=== PATIENT | female | born 1985 | race Caucasian/White ===

== ENCOUNTER 2018-03-15 11:37 | Emergency (ER) | payer BC ==
[~2018-03-15] VITALS: Ht 160 cm; Wt 62.6 kg
[2018-03-15 12:03] VITALS: BP 114/56
[2018-03-15] MEDS ORDERED: CEPH-264 PO (12:48)
[2018-03-15] MEDS ORDERED: MUPI22OI2 TP (12:48)
--- NOTE | 2018-03-15 12:49 | PHYS DOC ---
Past Medical History Past Medical History: Other Additional Past Medical Histor: Cystic Acne Past Surgical History: No Surgical History Alcohol Use: Rarely Drug Use: None Adult General Chief Complaint Chief Complaint: ABSCESS HPI HPI Patient is a 32 year old [f__sex] who presents with [] Review of Systems Review of Systems Constitutional: Denies fever or chills [] Eyes: Denies change in visual acuity, redness, or eye pain [] HENT: Denies nasal congestion or sore throat [] Respiratory: Denies cough or shortness of breath [] Cardiovascular: No additional information not addressed in HPI [] GI: Denies abdominal pain, nausea, vomiting, bloody stools or diarrhea [] : Denies dysuria or hematuria [] Musculoskeletal: Denies back pain or joint pain [] Integument: Denies rash or skin lesions [] Neurologic: Denies headache, focal weakness or sensory changes [] Endocrine: Denies polyuria or polydipsia [] All other systems were reviewed and found to be within normal limits, except as documented in this note. Allergies Allergies Allergies Coded Allergies Type Severity Reaction Last Updated Verified No Known Drug Allergies 03/15/18 No Physical Exam Physical Exam Constitutional: Well developed, well nourished, no acute distress, non-toxic appearance. [] HENT: Normocephalic, atraumatic, bilateral external ears normal, oropharynx moist, no oral exudates, nose normal. [] Eyes: PERRLA, EOMI, conjunctiva normal, no discharge. [] Neck: Normal range of motion, no tenderness, supple, no stridor. [] Cardiovascular:Heart rate regular rhythm, no murmur [] Lungs & Thorax: Bilateral breath sounds clear to auscultation [] Abdomen: Bowel sounds normal, soft, no tenderness, no masses, no pulsatile masses. [] Skin: Warm, dry, no erythema, no rash. [] Back: No tenderness, no CVA tenderness. [] Extremities: No tenderness, no cyanosis, no clubbing, ROM intact, no edema. [] Neurologic: Alert and oriented X 3, normal motor function, normal sensory function, no focal deficits noted. [] Psychologic: Affect normal, judgement normal, mood normal. [] Current Patient Data Vital Signs Vital Signs Date Time Temp Pulse Resp B/P (MAP) Pulse Ox O2 Delivery O2 Flow Rate FiO2 03/15/18 12:03 98.2 71 14 114/56 (75) 100 Room Air 98.2 EKG EKG [] Radiology/Procedures Radiology/Procedures [] Course & Med Decision Making Course & Med Decision Making Pertinent Labs and Imaging studies reviewed. (See chart for details) [] Dragon Disclaimer Dragon Disclaimer This electronic medical record was generated, in whole or in part, using a voice recognition dictation system. Departure Departure Impression: Primary Impression: Cellulitis Referrals: NO PCP (PCP) Patient Instructions: Cellulitis Additional Instructions: Use medication as directed. Follow-up with your primary care provider if not improving in 4 days or return to the emergency department if worsening. Scripts Mupirocin (MUPIROCIN OINTMENT) 22 Gm Oint...g. 1 CRISTOFER TP TID for WOUND CARE, #1 TUBE Prov: EMMY ROBERTS APRN 03/15/18 Cephalexin (KEFLEX) 500 Mg Capsule 1 CAP PO TID for cellulitis, #30 CAP Prov: EMMY ROBERTS APRN 03/15/18 EMMY ROBERTS APRN Mar 15, 2018 12:49
== END 2018-03-15 13:01 | disposition home or self-care (01) ==
LOC: ER 11:37
DX: O99.712 Diseases of the skin and subcutaneous tissue complicating pregnancy, second trimester (principal); L03.211 Cellulitis of face; Z3A.14 14 weeks gestation of pregnancy
CPT/HCPCS: 99283

== ENCOUNTER 2018-08-30 22:16 | Inpatient (IN) | payer BC, OTHER ==
[~2018-08-30] VITALS: Ht 160 cm; Wt 64.4 kg
[~2018-08-30 22:16] MED LIST: CEPH-264 PO; MUPI22OI2 TP
[2018-08-30] MEDS ORDERED: IV RINGERS,LACTATED 1000ML 1,000 ML IV SCH (22:22)
[2018-08-30] MEDS ORDERED: ACETAMINOPHEN 500 MG TABLET PO PRN (22:30)
[2018-08-30] MEDS ORDERED: ONDANSETRON PF 4 MG/2 ML VIAL. IV PRN (22:30)
[2018-08-30 23:21] LABS: BILIRUBIN,URINE NEGATIVE (NEG); CLARITY,URINE CLEAR; COLOR,URINE YELLOW; NITRITE,URINE NEGATIVE (NEG); PH,URINE 6.5; PROTEIN,URINE NEGATIVE (NEG-TRACE)
[2018-08-30 23:28] LABS: AMPHETAMINE/METHAMPHETAMINE NEG (NEG); BARBITURATES NEG (NEG); BENZODIAZEPINES NEG (NEG); CANNABINOIDS NEG (NEG); COCAINE NEG (NEG); METHADONE NEG (NEG); OPIATES NEG (NEG); PHENCYCLIDINE NEG (NEG)
[2018-08-30 23:31] LABS: BACTERIA,URINE 0 /HPF (0-FEW); SQUAMOUS EPITHELIAL CELL,UR FEW /LPF
[2018-08-31] VITALS (7 sets, daily range): BP systolic 109–138; BP diastolic 61–86
[2018-08-31] MEDS: IV RINGERS,LACTATED 1000ML 1,000 ML IV SCH ×3 (00:11→16:11)
[2018-08-31] MEDS ORDERED: LIDOCAINE 1% PF 30 ML VIAL. INJ PRN (00:15)
[2018-08-31] MEDS ORDERED: 0.9 % SODIUM CHLORIDE 10 ML DISP.SYRIN. IV PRN ×2 (00:15→01:45)
[2018-08-31] MEDS ORDERED: fentaNYL PF VIAL 100 MCG/2 ML VIAL IV PRN ×2 (00:15)
[2018-08-31] MEDS ORDERED: OXYTOCIN 30 UNIT/500 ML PREMIX 500 ML IV PRN ×3 (00:15→01:45)
[2018-08-31] MEDS ORDERED: TERBUTALINE 1 MG/ML VIAL. SQ PRN (00:15)
[2018-08-31] MEDS ORDERED: IBUPROFEN 400 MG TABLET. PO PRN (00:15)
[2018-08-31 00:42] LABS: BASO # 0.1 x10^3/uL (0.0-0.2); BASO % 1 % (0-3); EOS # 0.1 x10^3/uL (0.0-0.7); EOS % 1 % (0-3); HEMATOCRIT 39.3 % (36.0-47.0); HEMOGLOBIN 12.5 g/dL (12.0-15.5); LYMPH # 2.1 x10^3/uL (1.0-4.8); LYMPH % 15 % (24-48); MEAN CORPUSCULAR HEMOGLOBIN 25 pg (25-35); MEAN CORPUSCULAR HGB CONC 32 g/dL (31-37); MEAN CORPUSCULAR VOLUME 80 fL (79-100); MONO # 1.2 x10^3/uL (0.0-1.1); MONO % 9 % (0-9); NEUT # 9.9 x10^3uL (1.8-7.7); NEUT % 74 % (31-73); PLATELET COUNT 312 x10^3/uL (140-400); RED BLOOD COUNT 4.92 x10^6/uL (3.50-5.40); RED CELL DISTRIBUTION WIDTH 15.3 % (11.5-14.5); WHITE BLOOD COUNT 13.4 x10^3/uL (4.0-11.0)
--- NOTE | 2018-08-31 01:08 | PDOC1 ---
OB - History Hx of Present Care: Good Care Ultrasounds: Normal mid trimester US Obstetrical Complications: None Medical Complications: None Past Family/Social History * Past Medical, Surgical, Family and Obstetric Histories reviewed from chart. Rubella: Immune RPR/VDRL: Negative GBS Status: Negative HBsAG: Negative OB - Chief Complaint & HPI Date of Admission: Date of Admission: August 30, 2018 at 22:16 Chief Complaint/History : 10 Para: 8 EGA: 38 Reason for admission: active labor Admission Nurse Assessment Rev: Yes OB - Admission Exam Physical Exam Vitals: VS - Last 72 Hours, by Label Date Time Temp Pulse Resp B/P (MAP) Pulse Ox O2 Delivery O2 Flow Rate FiO2 08/31/18 00:19 98.3 69 18 138/76 (96) Room Air 98.3 HEENT: Normal Heart: Regular Rate Lungs: Clear Abdomen: Gravid, Non tender, Soft Extremities: Edema Reflexes: Normal Cervical Dilatation: 7cm Effacement: 75% Station: -2 Membranes: Intact Heart Rate: Normal Accelerations: Accelerations Present Contractions on Admission: < 5 Minutes Apart Intensity: Mild Text A: 38 wks IUP Grand Multip Active labor P: Admit for labor management. SABRINA BRO Jr, MD August 31, 2018 01:08
--- NOTE | 2018-08-31 01:42 | PDOC ---
VAGINAL DELIVERY DATE DATE: 08/31/18 TIME: 01:41 : Other (10) Para: Other (9) EGA: 38 VAGINAL DELIVERY: VTX VACCUM ASSISTED: No PLACENTA: Spontaneous 8/9 SEX: Male WEIGHT Weight [3345 gm ] Nuchal Cord: No Amniotic Fluid: Clear PAIN: Natural EPISIOTOMY: No EXTENSION: No EBL 300 ml COMPLICATIONS none CONDITION pt. stable Signs of Intrauterine Infectio: None Shoulder Dystocia: No SABRINA BRO Jr, MD August 31, 2018 01:42
[2018-08-31] MEDS ORDERED: SIMETHICONE 80 MG TAB.CHEW PO PRN (01:45)
[2018-08-31] MEDS ORDERED: PHENYLEPH/MINERAL OIL/PETROLAT RECTAL OINTMENT 28GM TUBE. RC PRN (01:45)
[2018-08-31] MEDS ORDERED: diphenhydrAMINE HCL 25 MG CAPSULE PO PRN (01:45)
[2018-08-31] MEDS ORDERED: BENZOCAINE 20% TOPICAL AEROSOL SPRAY 57GM CAN. TP PRN (01:45)
[2018-08-31] MEDS ORDERED: MAGNESIUM HYDROXIDE 2,400 MG/30 ML ORAL.SUSP. PO PRN (01:45)
[2018-08-31] MEDS ORDERED: oxyCODONE/APAP 5/325 1 TAB TABLET PO PRN (01:45)
[2018-08-31] MEDS ORDERED: ACETAMINOPHEN 325 MG TABLET. PO PRN (01:45)
[2018-08-31] MEDS ORDERED: ZOLPIDEM 5 MG TABLET. PO PRN (01:45)
[2018-08-31] MEDS ORDERED: MMR per PROTOCOL. MC PRN (01:45)
[2018-08-31] MEDS ORDERED: HYDROCORTISONE 1% TOPICAL OINTMENT 30GM TUBE. TP PRN (01:45)
[2018-08-31] MEDS ORDERED: MAG HYDROX/ALUMINUM HYD/SIMETH 30 ML ORAL.SUSP PO PRN (01:45)
[2018-08-31] MEDS: IBUPROFEN 400 MG TABLET. PO PRN ×3 (03:53→22:48)
[2018-08-31] MEDS: DOCUSATE SODIUM 100 MG CAPSULE. PO PRN (12:57)
[2018-09-01 05:14] LABS: BASO # 0.1 x10^3/uL (0.0-0.2); BASO % 1 % (0-3); EOS # 0.2 x10^3/uL (0.0-0.7); EOS % 2 % (0-3); HEMATOCRIT 38.1 % (36.0-47.0); HEMOGLOBIN 11.9 g/dL (12.0-15.5); LYMPH # 3.1 x10^3/uL (1.0-4.8); LYMPH % 27 % (24-48); MEAN CORPUSCULAR HEMOGLOBIN 25 pg (25-35); MEAN CORPUSCULAR HGB CONC 31 g/dL (31-37); MEAN CORPUSCULAR VOLUME 81 fL (79-100); MONO # 0.9 x10^3/uL (0.0-1.1); MONO % 8 % (0-9); NEUT # 7.3 x10^3uL (1.8-7.7); NEUT % 63 % (31-73); PLATELET COUNT 299 x10^3/uL (140-400); RED BLOOD COUNT 4.72 x10^6/uL (3.50-5.40); RED CELL DISTRIBUTION WIDTH 15.2 % (11.5-14.5); WHITE BLOOD COUNT 11.6 x10^3/uL (4.0-11.0)
[2018-09-01 05:15] VITALS: BP 131/78
[2018-09-01] MEDS ORDERED: FERROUS SULFATE 325 MG TABLET. PO SCH (08:00)
[2018-09-01] MEDS: DOCUSATE SODIUM 100 MG CAPSULE. PO PRN ×2 (09:10→20:22)
[2018-09-01] MEDS: IBUPROFEN 400 MG TABLET. PO PRN ×2 (09:10→20:22)
[2018-09-01 11:10] VITALS: BP 122/82
--- NOTE | 2018-09-01 14:44 | NUR ---
SS following up on [facility] hotline report, #[id number], made on 08/31/2018 for past history of substance use, incarceration, and loss of custody of other children. SS e-mailed [facility] supervisors for update on hotline report. SS awaiting response from [facility] at this time. Mother's UDS for this admission is negative. Infant RN reported that Meconium is negative. SS will await response from [facility] and will proceed accordingly.
--- NOTE | 2018-09-01 14:48 | PDOC ---
Provider Note Provider Note Doing well VSS Uterus NTTP plan PPBTL in AM JACQUI BURRELL MD September 01, 2018 14:48
[2018-09-01 15:41] VITALS: BP 128/90
--- NOTE | 2018-09-01 15:43 | NUR ---
pt signed for tubal ligation in am, questions answered on procedure in am
[2018-09-01 20:20] VITALS: BP 123/79
[2018-09-02 02:57] VITALS: BP 106/70
[2018-09-02] MEDS ORDERED: BUPIVAC MPF-EPI 0.5%-1:200000 30 ML VIAL. ONE (05:57)
[2018-09-02] MEDS ORDERED: LIDOCAINE 1% PF 2 ML VIAL. ID PRN (07:00)
[2018-09-02] MEDS ORDERED: fentaNYL PF VIAL 100 MCG/2 ML VIAL IV PRN (07:00)
[2018-09-02] MEDS ORDERED: PROCHLORPERAZINE 10 MG/2 ML VIAL. IV PRN (07:00)
[2018-09-02] MEDS ORDERED: HYDROmorphone 2 MG/ML VIAL IV PRN (07:00)
[2018-09-02] MEDS ORDERED: ONDANSETRON PF 4 MG/2 ML VIAL. IV PRN (07:00)
[2018-09-02] MEDS ORDERED: IV RINGERS,LACTATED 1000ML 1,000 ML IV SCH (07:00)
[2018-09-02] MEDS ORDERED: LIDOCAINE 2% PF 5 ML VIAL. ONE ×2 (09:05→10:09)
[2018-09-02] MEDS ORDERED: PROPOFOL 20 ML IV ONE (09:05)
[2018-09-02] MEDS ORDERED: SUCCINYLCHOLINE 200 MG/10 ML VIAL. ONE (09:05)
[2018-09-02] MEDS ORDERED: DEXAMETHASONE SOD PHOS 4 MG/ML VIAL ONE (09:06)
[2018-09-02] MEDS ORDERED: fentaNYL PF VIAL 100 MCG/2 ML VIAL ONE ×2 (09:07→10:24)
--- NOTE | 2018-09-02 09:28 | PDOC ---
BRIEF OPERATIVE NOTE Pre-Op Diagnosis Multiparous desires permanent sterilization Post-Op Diagnosis same Procedure Performed PPBTL Surgeon Caryl Anesthesia Type: General Blood Loss 10cc Specimens Obtained R and L ova ducts Complications None JACQUI BURRELL MD September 02, 2018 09:28
[2018-09-02] MEDS ORDERED: OXYC1TAB15 PO (09:29)
[2018-09-02] MEDS ORDERED: NAPR-514 PO (09:29)
--- NOTE | 2018-09-02 09:31 | PDOC3 ---
OB DISCHARGE SUMMARY DATE OF ADMISSION: 08/31/18 DATE OF DISCHARGE: 09/02/18 PROCEDURES: Ultrasound INTRAPARTUM PROCEDURES: Tubal Ligation, Spontanous Vag Deliv PROCEDURES: None OPERATIONS: None DISCHARGE DIAGNOSIS: Term Delivered DISCHARGE INFORMATION: Activity HOSPITAL COURSE unremarkable CONDITION AT DISCHARGE Stable JACQUI BURRELL MD September 02, 2018 09:31
[2018-09-02] MEDS ORDERED: SEVOFLURANE 31 TO 60 MINUTES. IH ONE (09:52)
[2018-09-02] MEDS: fentaNYL PF VIAL 100 MCG/2 ML VIAL IV PRN ×2 (10:31→10:40)
[2018-09-02] MEDS: MORPHINE SULFATE 2 MG/ML VIAL. IV PRN ×2 (10:45→11:00)
[2018-09-02] MEDS ORDERED: MORPHINE SULFATE 2 MG/ML VIAL. ONE (10:51)
[2018-09-02 12:15] VITALS: BP 122/85
--- NOTE | 2018-09-02 12:54 | NUR ---
SS received follow up from [facility] stating the following: This hotline was not assigned for assessment by our investigators. BAHMAN Rdz Hypertrichologist Child Protective Services [place] [facility] [address] [place] [phone] RN notified.
[2018-09-02 13:00] VITALS: BP 122/85
[2018-09-02] MEDS: IBUPROFEN 400 MG TABLET. PO PRN (14:45)
[2018-09-02] MEDS: DOCUSATE SODIUM 100 MG CAPSULE. PO PRN (14:45)
--- NOTE | 2018-09-02 16:28 | NUR ---
Discharge Discharge instructions given to patient at this time, no questions or concerns. To follow up in [address] Hutson in his office. Waiting on ride, will continue to monitor.
[2018-09-02 17:22] VITALS: BP 116/83
--- NOTE | 2018-09-03 17:07 | PATHOLOGY ---
[facility] Accession Number: [id number] . 01 Material submitted: . PART A: fallopian tube - LEFT TUBE. Modifiers: left PART B: fallopian tube - RIGHT TUBE. Modifiers: right . 01 Clinical history: . , bilateral tube ligation . 02 Diagnosis: A. Left tubal ligation: - Segment of fallopian tube confirmed. . B. Right tubal ligation: - Segments of fallopian tube confirmed. . (JPM:mm; 09/03/2018) [facility]/09/03/2018 . 02 Electronically signed: . Deshawn Carrillo MD, Pathologist NPI- [id number] . 01 Gross description: . A. The specimen is received in formalin, labeled "Hutchinson, Dania, left tube", is a cylindrical segment of davis-white rubbery tissue measuring 3.0 cm in length with an average 0.4 cm diameter. The specimen is serially section and entirely submitted in A1. . B. The specimen is received in formalin, labeled "Hutchinson, Dania, right tube ", is a fimbriated segment of fallopian tube measuring 2.7 cm in length and up to 0.3 cm in diameter. Attached to this is a coiled segment of fallopian tube approximately measuring 2.5 cm in length with an average 0.3 cm diameter. Also received is a nonfimbriated cylindrical segment of fallopian tube measuring 2.0 cm in length with an average 0.3 cm diameter. [facility] tissue is submitted in B1. ([facility]; 09/02/2018) SHS/[facility]S . 02 Pathologist provided ICD-10: Z30.2 . 02 CPT . 771224, 505925 Specimen Comment: A courtesy copy of this report has been sent to Specimen Comment: [phone]. Specimen Comment: Report sent to Performed at: [address] [facility], [place] [id number] MD Fly Hendricks MD Phone: [phone] [facility]formed at: [address] [facility] [address], [place] [id number] MD Deshawn Carrillo MD Phone: [phone]
--- NOTE | 2018-09-18 10:59 | OP ---
DATE OF SURGERY: 09/02/2018 PREOPERATIVE DIAGNOSES: Multiparous, desires permanent sterilization. POSTOPERATIVE DIAGNOSES:. Multiparous, desires permanent sterilization. PROCEDURE: bilateral tubal ligation. SURGEON: Jacqui Hutson M.D. CLASSIFIED AD TAKER: None. ANESTHESIA: General. ESTIMATED BLOOD LOSS: 10 mL. FLUIDS: Crystalloid. SPECIMENS: Right and left oviducts. COMPLICATIONS: None. CONDITION: Stable. DESCRIPTION OF PROCEDURE: After risks, benefits, indications, alternatives discussed in detail with the patient, the patient was brought to the OR theater, placed in the supine position. After adequate general anesthesia, the patient was prepped and draped in usual sterile manner. A transverse infraumbilical incision made sharply with scalpel and carried down through subcutaneous tissue with a scalpel. Rectus fascia was grasped x 2 with Allis clamps, elevated way above the abdominal contents. It was incised with a scalpel. Parietal peritoneum was entered bluntly with gloved hand. [facility] retractor was placed within this incision. First, I manipulated the tube over the right cornu after the patient was placed in Trendelenburg. Right tube was grasped with Reva clamps, followed to its fimbriated end and a relatively avascular portion in the mid ampullary region was identified. A window was created with Bovie cautery, 2-0 plain ties were used to doubly ligate the tube. The tube was transected between these two ligatures secondary to the mesosalpinx oozing and the remaining in the fimbriated end on the right was also taken in a clamp-cut type manner. Good hemostasis was assured. Same procedure except for the fimbriated end was left remaining on the left tube. Good hemostasis was assured. Tubes were allowed to fall back into the pelvic cavity. The fascia was reapproximated with 0 Vicryl in a running manner. The skin was reapproximated with 4-0 Monocryl in subcuticular fashion. Incision was infiltrated with 0.5% Marcaine with epinephrine. Procedure was terminated. Sponge, needle, instrument counts correct x 2 per nursing staff. The patient went to postop anesthesia recovery in stable condition. JACQUI HUTSON MD DR: FRANK/keerthi JOB#: [id number] / [id number]
== END 2018-09-02 18:54 | disposition home or self-care (01) | DRG 798 ==
LOC: OBSVTOIN 22:16 → 3 SO LND 22:16 → 3 NORTH 09-01 09:36
PROVIDERS: ADMIT Specialist; ATTEND Specialist
PROC: 10E0XZZ Delivery of Products of Conception, External Approach (ICD-10-PCS; principal; 2018-08-31)
PROC: 0UB70ZZ Excision of Bilateral Fallopian Tubes, Open Approach (ICD-10-PCS; 2018-09-02)
DX: O80 Encounter for full-term uncomplicated delivery (principal); Z37.0 Single live birth; Z3A.38 38 weeks gestation of pregnancy; Z30.2 Encounter for sterilization
CPT/HCPCS: 36415; 80307; 81001; 85025; 86592; 86850; 86900; 86901; 87086; 88302; A7015; J0330; J1100; J2001; J2270; J2590; J2704; J3010; J3490; J7120; 99285-25